=== PATIENT | male | born 1945 | race Caucasian/White ===

== ENCOUNTER → 2018-12-12 | Outpatient (CLI) | payer OTHER ==
--- NOTE | 2018-12-12 12:17 | RAD ---
Right shoulder 4 views INDICATION: Shoulder pain osteoarthrosis M25.511 IMPRESSION: Advanced osteoarthrosis of the glenohumeral joint with prominent inferior medial humeral osteophyte. No fracture or dislocation. Electronically signed by: Alfonso Frankel MD 12/12/2018 12:14 PM CDT
== END ==
LOC: RAD 08:09
PROVIDERS: ATTEND Orthopaedic Surgery
DX: M19.011 Primary osteoarthritis, right shoulder (principal)

== ENCOUNTER → 2019-01-09 | Outpatient (CLI) | payer OTHER ==
--- NOTE | 2019-01-09 18:32 | MRI ---
EXAM DESCRIPTION: Cervical Spine: MRI. CLINICAL HISTORY: 73 years Male CERVICAL RADICULITIS . COMPARISON: radiograph of the shoulder 12/12/2018. TECHNIQUE: Multiplanar, high-field MRI, multiple sequences, non-contrast Cervical spine. FINDINGS: C2-C3: Normal signal in the disc with disc space preserved. Small bilateral uncinate spurs. Hypertrophic arthrosis left facet with mild neural foraminal stenosis. Moderate narrowing of the right neuroforamen and no significant narrowing of the canal. C3-C4: Mild to moderate disc space loss with desiccation of the disc. Anterior Modic type II endplate reactive changes. Posterior disc osteophyte complex abutting the cord. Bilateral uncinate spurs with arthrosis of the bilateral facet joints more left than right resulting in bilateral neural foraminal stenosis. Mild to moderate canal narrowing. C4-C5: Disc desiccation and minimal disc space loss. Anterior bulging and endplate ridging. Bilateral facet arthrosis and hypertrophic uncinate processes resulting in bilateral neural foraminal stenosis. Minimal canal narrowing. C5-C6: Disc desiccation and moderate disc space loss. Anterior disc bulge with Modic type II endplate reactive changes and endplate ridging abutting the posterior esophagus. Posterior broad-based disc osteophyte complex bulge with minimal impression on the ventral cord and mild central canal stenosis. No cord edema. Bilateral uncinate process spurs and bilateral hypertrophic facet arthrosis resulting in bilateral neural foraminal stenosis. Minimal hypertrophy of the flavum ligaments. A small cyst is present underneath the right posterior superior C6 endplate. C6-C7: Disc desiccation and minimal posterior disc space loss and minimal posterior bulge with no significant canal narrowing. Bilateral facets are unremarkable but bilateral uncinate spurs are present resulting in bilateral neural foraminal stenosis. Minimal hypertrophy of the flavum ligaments. T1-T2: Small focal bulge of the disc posteriorly to the left with no cord or nerve root encroachment. Canal and foramina are patent. Facets are negative. Normal signal in the C7-T1 disc with no bulging. Disc space preserved. Canal and neural foramina are patent. Facet joints are unremarkable. Spinal alignment slightly lordosis C2-C6. No cord compression or cord edema. Atlantoaxial joint minimal hypertrophy almost abutting the ventral cord. Base of the cerebellar tonsils is at the level of the foramen magnum. Paravertebral soft tissues unremarkable.. Vertebral bodies are not compressed at any level. Normal marrow signal in the remaining vertebral bodies and the posterior elements. IMPRESSION: 1. Bilateral neural foraminal stenosis at C3-4, C4-5, C5-C6, and C6-7, caused by hypertrophic uncinate spurs and hypertrophic arthrosis of the facet joints. The same processes are causing neuroforaminal stenosis on the left at C2-C3. 2. Posterior disc desiccation and bulging with endplate spurs at C5-6 abutting the cord and causing mild central canal stenosis along with posterior hypertrophied flavum ligaments. No cord compression or edema.. Electronically signed by: Sin Stover MD 01/09/2019 6:30 PM CDT
== END ==
LOC: MRI 10:00
PROVIDERS: ATTEND Orthopaedic Surgery
DX: M50.122 Cervical disc disorder at C5-C6 level with radiculopathy (principal); M47.892 Other spondylosis, cervical region; M48.02 Spinal stenosis, cervical region

== ENCOUNTER → 2019-02-27 | Outpatient (CLI) | payer OTHER | LOC: LAB.O 11:35 | PROVIDERS: ATTEND Orthopaedic Surgery | DX: Z01.818 Encounter for other preprocedural examination (principal) ==

== ENCOUNTER 2019-03-26 05:36 | Day surgery (SDC) | payer OTHER ==
--- NOTE | 2019-03-24 11:09 | HP ---
CHIEF COMPLAINT: Hand numbness. HISTORY OF PRESENT ILLNESS: Mr. Rob is a 73-year-old male with a history of numbness in the hand that has been going on for 4 to 5 months. It is not related to any trauma. He denies any neurologic symptoms on the left side. He has had EMG which does confirm carpal tunnel syndrome on the affected side. Because of his ongoing numbness, he has requested operative intervention. After discussing the risks, benefits and alternatives to that, he has given informed consent. MEDICATIONS: 1. Tamsulosin. 2. Atorvastatin. ALLERGIES: He is unsure, but thinks he may have an allergy to steroid. CODE STATUS: Full code. IMMUNIZATIONS: Up to date. SOCIAL HISTORY: The patient does not smoke or use any illicit drugs. He does drink on occasion. FAMILY HISTORY: None pertinent to today's complaint. REVIEW OF SYSTEMS: Negative except as indicated in the History of Present Illness. PHYSICAL EXAMINATION: VITAL SIGNS: Blood pressure 132/85. Pulse 74. Height 5'8". Weight 238 pounds. MENTAL STATUS: The patient is awake, alert, and is able to give a good history and participate in the physical. The patient is oriented to person, place and time. SKIN: Normal tone and turgor. MUSCULOSKELETAL: He has negative Tinel's and negative carpal compression test today. That said, he does have some numbness currently at rest. He has full flexion and extension rating clerk strength. He has full flexion and extension of the neck, but slight decreased lateral bend. He has some slight numbness with Spurling's on the right, but negative on the left. He has no significant thenar atrophy. ASSESSMENT: 1. Carpal tunnel syndrome by EMG. 2. Cervical radiculopathy. PLAN: At this point, we have discussed the risks, benefits, and alternatives to operative therapy. We further talked about some of the symptoms possibly being secondary to a cervical radiculopathy which possibly would not significantly improve with carpal tunnel release, however, he also has the symptoms on the distribution of the median nerve today that may improve. After discussing the risks, benefits and alternatives to this, he has given informed consent for carpal tunnel release. #[id number] MTDD
[2019-03-26] MEDS ORDERED: BUPIVACAINE 0.25% INJ 30 ML VIAL INJ ONE (08:17)
[2019-03-26] MEDS ORDERED: LIDOCAINE 1% 10 ML VIAL INJ ONE ×2 (08:18→10:00)
[2019-03-26] MEDS ORDERED: KETOROLAC TROMETHAMINE INJ 30 MG/ML VIAL IV ONE (10:00)
[2019-03-26] MEDS ORDERED: DEXAMETHASONE INJ 10 MG/ML VIAL IV ONE (10:00)
[2019-03-26] MEDS ORDERED: raNITIdine HCL INJ 25 MG/ML VIAL IV ONE (10:00)
[2019-03-26] MEDS ORDERED: PROPOFOL 200 MG/20 ML VIAL IV ONE (10:00)
[2019-03-26] MEDS ORDERED: LACTATED RINGERS 1,000 ML ONE (10:05)
[2019-03-26] MEDS ORDERED: SODIUM CHL 0.9% 100ML MINI-BAG 100 ML IVPB ONE (10:05)
[2019-03-26] MEDS ORDERED: ceFAZolin SODIUM 1 GM VIAL ONE (10:06)
[2019-03-26] MEDS ORDERED: fentaNYL CITRATE INJ 50 MCG/ML AMP ONE (10:10)
[2019-03-26] MEDS ORDERED: MIDAZOLAM INJ 2 MG/2 ML VIAL ONE (10:21)
[2019-03-26] MEDS: ceFAZolin SODIUM 1 GM VIAL ONE ×2 (11:06→11:13)
[2019-03-26] MEDS: VANCOMYCIN HCL INJ 1,000 MG VIAL IVPB ONE ×2 (11:07→11:13)
[2019-03-26 13:52] VITALS: BP 148/88; TEMP 98.4; O2SAT 97
--- NOTE | 2019-03-27 09:24 | OP ---
DATE OF PROCEDURE: 03/26/19 PREOPERATIVE DIAGNOSIS: 1. Carpal tunnel syndrome. POSTOPERATIVE DIAGNOSIS: 1. Carpal tunnel syndrome. PROCEDURE: 1. Carpal tunnel release. SURGEON: Dave Alva MD. MOLDER MACHINE: Sin Lawson CST, SA-C. ANESTHESIA: Local with sedation. COMPLICATIONS: None. FINDINGS: Thickening of the transverse carpal ligament and narrowing of the median nerve across the carpal tunnel. INDICATION: Mr. Rob has a history of upper extremity pain and numbness. He has clinical symptoms consistent with carpal tunnel syndrome. He has also had an EMG which confirms the presence of carpal tunnel syndrome. Because of ongoing symptoms, he has requested operative intervention. After discussing the risks, benefits and alternatives to that, the patient has given informed consent for carpal tunnel release. PROCEDURE: The patient was brought to the Operating Room and placed in the supine position. Sedation was administered and local anesthetic was injected into the operative area under sterile conditions. After the injection of anesthetic, the arm was sterilely prepped and draped. A longitudinal incision was made directly overlying the transverse carpal ligament and blunt dissection was carried down to the ligament. The transverse carpal ligament was sharply transected along its length and a Beatrice elevator was used to ensure complete release of the ligament. Once release had been confirmed, the wound was thoroughly irrigated and the wound was closed with Nylon suture. A sterile dressing was placed and the patient was taken to the Day Surgery Unit. POSTOPERATIVE PLAN: The patient has been encouraged to do range of motion of the digits and will followup with us in two days. #[id number] MTDD
== END 2019-03-26 12:25 | disposition home or self-care (01) ==
LOC: AMB 05:36
PROVIDERS: ATTEND Orthopaedic Surgery
DX: G56.01 Carpal tunnel syndrome, right upper limb (principal); M54.12 Radiculopathy, cervical region; Z79.899 Other long term (current) drug therapy
CPT/HCPCS: 01810; 64721; 80307; J0690; J1100; J1885; J2250; J2780; J3010; J3370; J3490; J7050; J7120